=== PATIENT | female | born 1995 | race Caucasian/White ===

== ENCOUNTER 2017-08-07 16:48 | Emergency (ER) | payer MEDICAID ==
[~2017-08-07] VITALS: Ht 162.6 cm; Wt 107.5 kg
[~2017-08-07 16:48] MED LIST: CLIN300C17 PO; HYDR-569 PO; NO HOME MEDS; ONDA4TAB6 PO
[2017-08-07 19:02] VITALS: BP 129/78
[2017-08-07] MEDS ORDERED: PENI500T2 PO (19:37)
== END 2017-08-07 20:05 | disposition home or self-care (01) ==
LOC: ER 16:48
DX: J02.9 Acute pharyngitis, unspecified (principal); G89.29 Other chronic pain; F17.200 Nicotine dependence, unspecified, uncomplicated; F12.10 Cannabis abuse, uncomplicated; F15.10 Other stimulant abuse, uncomplicated; Z79.899 Other long term (current) drug therapy; Z86.14 Personal history of Methicillin resistant Staphylococcus aureus infection
CPT/HCPCS: 99283

== ENCOUNTER 2018-02-24 13:01 | Emergency (ER) | payer MEDICAID ==
[~2018-02-24] VITALS: Ht 165.1 cm; Wt 100.0 kg
[2018-02-24 13:09] VITALS: BP 128/85
== END 2018-02-24 14:39 | disposition home or self-care (01) ==
LOC: ER 13:02
DX: L02.415 Cutaneous abscess of right lower limb (principal); G89.29 Other chronic pain; Z86.14 Personal history of Methicillin resistant Staphylococcus aureus infection; F12.90 Cannabis use, unspecified, uncomplicated; F15.90 Other stimulant use, unspecified, uncomplicated; Z79.2 Long term (current) use of antibiotics; Z79.899 Other long term (current) drug therapy
CPT/HCPCS: 99281

== ENCOUNTER 2018-04-03 06:45 | Emergency (ER) | payer MEDICAID, OTHER ==
[~2018-04-03] VITALS: Ht 162.6 cm; Wt 105.0 kg
[~2018-04-03 06:45] MED LIST changes: +HYDR-4383 PO; -HYDR-569 PO
[2018-04-03 06:59] VITALS: BP 143/88
[2018-04-03] MEDS ORDERED: gabapentin 300mg capsule PO ONE (08:20)
[2018-04-03] MEDS ORDERED: ketorolac trometh inj. 60 MG/2 ML VIAL IM ONE (08:20)
== END 2018-04-03 08:39 | disposition home or self-care (01) ==
LOC: ER 06:45
DX: R51 Headache (principal); G89.29 Other chronic pain; F12.90 Cannabis use, unspecified, uncomplicated; F15.90 Other stimulant use, unspecified, uncomplicated; Z79.2 Long term (current) use of antibiotics; Z79.899 Other long term (current) drug therapy
CPT/HCPCS: 99282; J1885

== ENCOUNTER 2019-08-11 13:39 | Emergency (ER) | payer MEDICAID, OTHER ==
[~2019-08-11] VITALS: Ht 162.6 cm; Wt 89.5 kg
[2019-08-11 14:48] LABS: BASOPHILS % (AUTO) 0.3 % (0-1); EOSINOPHILS # (AUTO) 0.1 X10'3 (0-0.9); EOSINOPHILS % (AUTO) 1.1 % (0-6); HEMATOCRIT 42.8 % (35.0-45.0); HEMOGLOBIN 14.5 g/dl (12.0-16.0); LYMPHOCYTES % (AUTO) 22.1 % (21-51); MEAN CORPUSCULAR HEMOGLOBIN 29.1 PG (27.0-31.0); MEAN CORPUSCULAR VOLUME 85.6 FL (78-98); MEAN PLATELET VOLUME 11.1 FL (7.4-10.4); MONOCYTES # (AUTO) 0.6 X10'3 (0-0.9); MONOCYTES % (AUTO) 6.4 % (2-12); NEUTROPHILS # (AUTO) 6.2 X10'3 (1.8-7.7); NEUTROPHILS % (AUTO) 70.1 % (42-75); PLATELET COUNT 203 X10'3 (140-440); RED BLOOD COUNT 4.99 X10'6 (4.20-5.60); RED CELL DISTRIBUTION WIDTH 13.6 % (11.5-14.5); WHITE BLOOD COUNT 8.8 X10'3 (4.5-11.0)
[2019-08-11 15:00] LABS: ALANINE AMINOTRANSFERASE 28 U/L (12-78); ALBUMIN 4.1 G/DL (3.4-5.0); ALBUMIN/GLOBULIN RATIO 1.1 (1.1-1.5); ALKALINE PHOSPHATASE 102 IU/L (46-116); ANION GAP 5 (8-16); ASPARTATE AMINO TRANSFERASE 16 U/L (10-37); BILIRUBIN,TOTAL 0.6 MG/DL (0.1-1.0); BLOOD UREA NITROGEN 12 MG/DL (7-18); CALCIUM 9.3 MG/DL (8.5-10.1); CHLORIDE 105 MMOL/L (99-107); CREATININE 0.92 MG/DL (0.40-0.90); GLUCOSE 94 MG/DL (70-104); POTASSIUM 3.7 MMOL/L (3.5-5.1); SODIUM 140 MMOL/L (135-145); TOTAL CARBON DIOXIDE 30.2 MMOL/L (24-32); TOTAL PROTEIN 7.9 G/DL (6.4-8.2); eGFR 76 ML/MIN
[2019-08-11 15:09] LABS: ETHANOL < 0.010 GM/DL (0.0-0.010)
--- NOTE | 2019-08-11 15:23 | NUR ---
PT IS SITTING UP IN HER BED, CALM NO S/S OF AGITATION
[2019-08-11] MEDS ORDERED: NO HOME MEDS (15:26)
[2019-08-11 15:56] LABS: CLARITY,URINE SLIGHTLY CLOUDY (Clear); COLOR,URINE YELLOW (Yellow); GLUCOSE, URINE NEGATIVE (Neg); KETONES,URINE TRACE mg/dl (Neg); LEUKOCYTE ESTERASE ,URINE NEGATIVE (Neg); NITRITES, URINE NEGATIVE (Neg); OCCULT BLOOD,URINE TRACE-INTACT (Neg); PROTEIN,URINE NEGATIVE (Neg); URINE HCG NEGATIVE (NEG)
[2019-08-11 15:58] LABS: UA COLLECTION TYPE CLN CATCH MIDSTREAM
[2019-08-11 16:03] LABS: BACTERIA,URINE FEW /HPF (Neg); HYALINE CASTS 0-3 /LPF (NEGATIVE); MUCUS STRANDS MODERATE /LPF (Neg); RBC,URINE 0-2 /HPF (0-2); SQUAMOUS EPITHELIAL CELL,UR MODERATE /LPF (FEW); WBC,URINE 0-4 /HPF (0-4)
--- NOTE | 2019-08-11 16:08 | NUR ---
OFFERRED PT FOOD AND JUICE. PT REFUSED STATING, "I JUST WANNA TALK TO THE MENTAL HEALTH PEOPLE. I DONT WANNA KILL MYSELF. I JUST WANNA GET OUTTA HERE SO I CAN GO TO WORK TONIGHT SO I DONT LOSE MY JOB". 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 KAMILAH GARCIA ADVISED.
[2019-08-11 16:09] LABS: URINE AMPHETAMINE SCREEN NEGATIVE (Neg); URINE BARBITUATE SCREEN NEGATIVE (Neg); URINE BENZODIAZEPINES SCREEN NEGATIVE (Neg); URINE CANNABINOID SCREEN POSITIVE (Neg); URINE COCAINE SCREEN NEGATIVE (Neg); URINE METHADONE SCREEN NEGATIVE (Neg); URINE OPIATE SCREEN NEGATIVE (Neg); URINE PHENCYCLIDINE SCREEN NEGATIVE (Neg)
--- NOTE | 2019-08-11 17:16 | NUR ---
pt sitting in bed, no s/s of agitation
--- NOTE | 2019-08-11 17:50 | NUR ---
pt was escorted from room 16 in ED with tech and Security to [facility]
[2019-08-11] MEDS ORDERED: nicotine 21mg patch - 24 hr TD ONE (18:05)
--- NOTE | 2019-08-11 19:33 | NUR ---
PT HAS BEEN VISITING WITH HER GRANDMA FOR PAST SEVERAL MINUTES. SHE REMAINS CALM AND HAS BEEN INTERACTING APPROPRIATELY.
--- NOTE | 2019-08-11 20:24 | NUR ---
PT EATING DINNER TRAY - NO NEEDS AT THIS TIME.
--- NOTE | 2019-08-11 21:20 | NUR ---
PT RESTING WITH COVERS PULLED UP TO SHOULDERS. NO DISTRESS NOTED. WILL CONTINUE TO MONITOR.
--- NOTE | 2019-08-11 22:11 | NUR ---
pt sleeping at this time. will continue to monitor. no distress noted.
--- NOTE | 2019-08-11 23:17 | NUR ---
pt continues to sleep. no distress noted. will continue to monitor.
--- NOTE | 2019-08-12 01:52 | NUR ---
PT SLEEPING. NO DISTRESS NOTED. WILL CONTINUE TO MONITOR.
[2019-08-12 05:38] VITALS: BP 101/76
--- NOTE | 2019-08-12 05:58 | NUR ---
NO EVENTS DURING THIS SHIFT. PT HAS REMAINED CALM AND COOPERATIVE AND ABLE TO FOLLOW SAFETY COMMANDS. SHE SLEPT ALL NIGHT WITH NO COMPLAINTS/NEEDS.
== END 2019-08-12 11:12 | disposition home or self-care (01) ==
LOC: ER 13:39
DX: R45.851 Suicidal ideations (principal); F12.90 Cannabis use, unspecified, uncomplicated; G89.29 Other chronic pain; F41.9 Anxiety disorder, unspecified; F31.9 Bipolar disorder, unspecified; F15.90 Other stimulant use, unspecified, uncomplicated; Z86.14 Personal history of Methicillin resistant Staphylococcus aureus infection
CPT/HCPCS: 36415; 80053; 80305; 80320; 81001; 81025; 84443; 85025; 99285

== ENCOUNTER 2022-05-27 17:07 | Emergency (ER) | payer MEDICAID ==
[~2022-05-27] VITALS: Ht 162.6 cm; Wt 94.6 kg
[~2022-05-27 17:07] MED LIST changes: -CLIN300C17 PO; -HYDR-4383 PO; -ONDA4TAB6 PO
[2022-05-27 17:46] VITALS: BP 158/109
[2022-05-27] MEDS ORDERED: LIDOcaine 1% 30ml preserv. free vial SQ STA (18:40)
[2022-05-27] MEDS ORDERED: SULF1TAB49 PO (19:09)
== END 2022-05-27 19:19 | disposition home or self-care (01) ==
LOC: ER 17:07
DX: L03.011 Cellulitis of right finger (principal); G89.29 Other chronic pain; F31.9 Bipolar disorder, unspecified; F15.10 Other stimulant abuse, uncomplicated; F12.10 Cannabis abuse, uncomplicated; Z79.899 Other long term (current) drug therapy
CPT/HCPCS: 10060; 99283; A6449

== ENCOUNTER 2023-03-14 08:09 | Emergency (ER) | payer MEDICAID ==
[~2023-03-14] VITALS: Ht 162.6 cm; Wt 81.8 kg
[2023-03-14 08:16] VITALS: BP 160/107; PULSE 93; RESP 18; TEMP 97.8; O2SAT 100
[2023-03-14] MEDS ORDERED: CLIN-97 PO (09:19)
== END 2023-03-14 09:40 | disposition home or self-care (01) ==
LOC: ER 08:09
DX: F15.10 Other stimulant abuse, uncomplicated (principal); B95.8 Unspecified staphylococcus as the cause of diseases classified elsewhere; G89.29 Other chronic pain; F41.9 Anxiety disorder, unspecified; F31.9 Bipolar disorder, unspecified; F12.90 Cannabis use, unspecified, uncomplicated; Z86.14 Personal history of Methicillin resistant Staphylococcus aureus infection; Z79.2 Long term (current) use of antibiotics
CPT/HCPCS: 10060; 99283